=== PATIENT | female | born 1990 | race Caucasian/White ===

== ENCOUNTER 2020-12-03 15:14 | Emergency (ER) | payer BC, SELFPAY ==
[2020-12-03 15:25] VITALS: BP 107/70; PULSE 73; RESP 18; TEMP 36.8; O2SAT 97
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
[2020-12-03] MEDS: Ketorolac 15 MG/ML VIAL IVP (15:47)
[2020-12-03] MEDS: Lactated Ringers 1,000 ML 1000 ML IV (15:48)
[2020-12-03] MEDS: Normal Saline Flush 10 ML SYR IVP (15:49)
[2020-12-03 16:01] LABS: Abs Immature Grans 0.02 10^3/uL (0.0-0.06); Absolute Basophil Count 0.06 10^3/uL (0.0-0.2); Absolute Eosinophil Count 0.17 10^3/uL (0.0-0.7); Absolute Lymphocyte Count 1.33 10^3/uL (1.2-3.4); Absolute Neutrophil Count 6.87 10^3/uL (1.2-6.7); Basophils % 0.7; Eosinophils % 1.9; HCT 36.1 % (36.0-46.0); HGB 12.1 g/dL (11.2-15.7); Immature Grans % 0.2; Lymphocytes % 14.9; MCH 29.9 pg (27.0-33.0); MCHC 33.5 % (32.0-36.0); MCV 89.1 fL (80-95); MPV 9.4 fL (8.0-11.0); Monocytes % 5.6; Neutrophils % 76.7; Nucleated RBC 0 %; Platelet Count 234 10^3/uL (130-400); RBC 4.05 10^6/uL (3.93-5.22); RDW 11.7 % (11.7-14.6); RDW-SD 37.9 fL; WBC 8.95 10^3/uL (4.4-10.8)
[2020-12-03 16:18] LABS: ALT 19 U/L (14-59); AST 16 U/L (15-37); Albumin 3.5 g/dL (3.4-5.0); Alkaline Phosphatase 39 U/L (46-116); Anion Gap 9.8 mmol/L (3-11); BUN 8 mg/dL (7-18); Bilirubin, Total 0.8 mg/dL (0.2-1.0); CO2 25.2 mmol/L (21.0-32.0); Calcium 8.5 mg/dL (8.5-10.1); Chloride 106 mmol/L (98-107); Glucose 99 mg/dL (74-106); Potassium 3.4 mmol/L (3.5-5.1); Sodium 141 mmol/L (136-145); Total Protein 6.8 g/dL (6.4-8.2)
[2020-12-03 16:28] LABS: Bilirubin Negative (Negative); Blood Negative (Negative); Clarity Clear (Clear); Glucose Negative (Negative); Ketones Trace mg/dL (Negative); Leukocyte Esterase Negative (Negative); Nitrite Negative (Negative); Specific Gravity 1.025 (1.005-1.025); Urobilinogen 0.2 EU/dL (Up TO 0.2); pH 5.5 (5-8)
[2020-12-03 16:38] LABS: Bacteria Rare HPF (Negative); C & S Indicated? No; Crystals Negative HPF (Negative); Epithelial Cells Negative HPF (Negative); Mucus Heavy (Negative); RBC 0-2 HPF (0-2); WBC 0-2 HPF (0-5)
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
[2020-12-03 17:44] VITALS: BP 114/69; PULSE 80; TEMP 37.2; O2SAT 99
[2020-12-03 18:58] VITALS: BP 114/69; PULSE 80; RESP 18; TEMP 37.2; O2SAT 99
== END 2020-12-03 19:02 | disposition home or self-care (01) ==
PROVIDERS: Emergency Provider Emergency Medicine
DX: S42.021A Displaced fracture of shaft of right clavicle, initial encounter for closed fracture (principal); S00.81XA Abrasion of other part of head, initial encounter; V19.9XXA Pedal cyclist (driver) (passenger) injured in unspecified traffic accident, initial encounter
CPT/HCPCS: 71250; 80053; 81025; 96361; 96374; 99284; 70450; 72125; 74176; 81003; 81015; 85025; J1885